=== PATIENT | female | born 1945 | race African-American/Black ===

== ENCOUNTER 2018-08-23 11:01 | Inpatient (IN) ==
--- NOTE | 2018-08-23 11:44 | Diag Imaging Result Doc PS360 ---
EXAM: CHEST-2 VIEWS HISTORY: cough TECHNIQUE: Chest two views COMPARISON: None. FINDINGS: The lungs are well expanded. The heart is not enlarged. The vessels are not distended. There are no infiltrates. No pleural effusions. There has been surgery to the lower neck. Mild scoliosis. IMPRESSION: No pneumonia. Electronically signed by Derek Ortega 08/23/2018 11:42 AM
[2018-08-23] MEDS ORDERED: NS 1,000 ML IV ONE (16:07)
[2018-08-23 16:24] LABS: ALLEN TEST YES; BE -3.3 mmoll (-3.0-3.0); BLOOD TYPE ARTERIAL; HCO3-(ACT) 22.3 mmoll (20.0-26.0); METHB 1.5 % (0.0-1.5); O2(CT) 18.6 mL/dL (15.0-23.0); O2HB 96.1 % (95.0-99.0); PCO2(98.6) 30 mmHg (35-45); PO2(98.6) 99 mmHg (60-100); SAMPLE BLOOD; SAO2 99.1 % (95.0-100.0); THB 13.7 g/dL (11.5-17.4); pH(98.6) 7.43 (7.35-7.45)
[2018-08-23 16:25] LABS: MODALITY ROOM AIR
--- NOTE | 2018-08-23 17:03 | PROVIDER DOCUMENTATION ---
This chart was entered by Kathy Morel Scribe, acting as scribe for Alex Gutierrez CRNP. HPI-General Adult - General Chief Complaint: Cough Stated Complaint: BS HIGH-CP/ACUTE DISTRESS DR ABDUL Time Seen by Provider: 08/23/18 15:57 Source: patient Allergies/Adverse Reactions: Patient Allergies Allergy/AdvReac Type Severity Reaction Status Date / Time codeine Allergy Unknown Verified 08/23/18 17:02 nifedipine [From Procardia] Allergy Unknown Verified 08/23/18 17:03 Home Medications: Home Medication List Medication Instructions Recorded Confirmed Last Taken Type Polyethylene Glycol 3350 [Miralax] 238 gm PO BID 90 Days #1 04/09/18 08/23/18 Unknown Rx Clonidine [Catapres] 0.1 mg PO BID 08/23/18 08/23/18 08/23/18 09:00 History Insulin Glargine,Hum.rec.anlog 65 unit SQ DAILY 08/23/18 08/23/18 Unknown History [Lantus Solostar] Insulin Glargine,Hum.rec.anlog 68 unit SQ HS 08/23/18 08/23/18 Unknown History [Lantus Solostar] Lisinopril 40 mg PO DAILY 08/23/18 08/23/18 08/23/18 09:00 History Sertraline HCl [Zoloft] 100 mg PO DAILY 08/23/18 08/23/18 Unknown History - History of Present Illness -Gen Adult Nature of Presenting Problems: 73 yof presents to the ed with c/o cough and sinus congestion for 3 weeks. pt also has elevated FSBG greater then 500 Location of Pain/Injury: reports: other (sinus congestion) Quality of Pain: reports: aching Severity: reports: mild Onset/Duration: reports: other (3 weeks') Timing: reports: still present Context/Activities at Onset: reports: light activity Modifying Factors: improves with: nothing Associated Symptoms: reports: cough, EENT symptoms, genitourinary problems, sinus congestion/drainage. denies: back/neck pain, fever/chills, headaches, shortness of breath, vomiting, weakness Similar Symptoms Previously?: Yes Recently seen or treated by another doctor?: No - Diabetes Related Context Context: reports: high blood sugar (greater then 500) Review of Systems - Adult - REVIEW OF SYSTEMS - ADULT Constitutional: denies: chills, fever Eyes: reports: no symptoms reported Ears, Nose, Mouth & Throat: reports: see HPI, sinus problem. denies: ear pain, throat pain Cardiovascular: denies: chest pain, palpitations Respiratory: reports: cough. denies: shortness of breath, wheezing Gastrointestinal: denies: abdominal pain, diarrhea, nausea, vomiting Genitourinary: reports: see HPI, frequency, frequent UTI's, urgency. denies: dysuria Musculoskeletal: denies: back pain, neck pain Integumentary: reports: no symptoms reported Neurological: denies: dizziness/vertigo, headache/migraines Psychiatric: reports: no symptoms reported Endocrine: reports: no symptoms reported Hematologic/Lymphatic: reports: no symptoms reported Allergic/Immunologic: reports: no symptoms reported All Other Systems: Reviewed and Negative Past History - Adult - PAST MEDICAL HISTORY-ADULT Review of Records: reports: Old Records Reviewed, Nursing Assessment Review, Medications Reviewed, Social history reviewed & non-contributory. Major Childhood Illnesses: reports: denies history Cardiovascular: reports: HTN Respiratory: reports: denies history Gastrointestinal: reports: pancreatitis Obstetrical/Gynecological: reports: denies history Genitourinary: reports: denies history Musculoskeletal: reports: denies history Neurological: reports: denies history Endocrine/Immune: reports: Diabetes Diabetes Type: Type 2 Diabetes controlled by:: Insulin Dependent Other Conditions: reports: denies history - PRIOR SURGERIES/PROCEDURES Surgical/Procedure History: reports: appendectomy, cholecystectomy, hysterectomy , orthopedic (extremity) - IMMUNIZATION STATUS Childhood Immunizations: See Nurse Assessment Flu Vaccine: See Nurse Assessment - FAMILY HISTORY Family History: reviewed, not pertinent - SOCIAL HISTORY Smoking: denies Substance Use: none/never Living Situation: family Physical Exam-General - PHYSICAL EXAM-ADULT Initial Vital Signs Reviewed: Yes - CONSTITUTIONAL General Appearance: appears well, alert - EYES Eyes: PERRL/EOMI, pink conjunctivae - HEAD, EARS, NOSE, MOUTH & THROAT HENMT: moist mucous membranes, frontal tenderness, maxillary tenderness - NECK Neck: full range of motion, supple, normal inspection - RESPIRATORY Respiratory: chest non-tender, lungs clear, normal breath sounds, other (cough) - CARDIOVASCULAR Cardiovascular: normal peripheral pulses, regular rate, rhythm - CHEST (BREASTS) Chest/Breast: deferred - GASTROINTESTINAL (ABDOMEN) Abdominal Exam: normal bowel sounds, non tender, soft - LYMPHATIC Lymphatic: no adenopathy - MUSCULOSKELETAL Back Exam: normal inspection, no CVA tenderness, no vertebral tenderness Extremity: normal range of motion, non-tender, normal inspection, no pedal edema , no calf tenderness, normal capillary refill - SKIN Integumentary: normal color, normal turgor, warm/dry - NEUROLOGIC Neurologic: grossly normal - PSYCHIATRIC Psych/Mental Status: normal mood/affect, normal thought content, normal thought process, oriented x 3 Progress - PLAN OF CARE/RESULTS Progress/Plan/Lab Results: Vital Signs - 8 hr 08/23/18 11:13 Temperature 97.5 F L Pulse Rate 89 Respiratory Rate 18 Blood Pressure 163/93 O2 Sat by Pulse Oximetry 95 Laboratory Results - last 24 hr 08/23/18 08/23/18 16:05 16:20 Specimen Type ARTERIAL Sample Site R RADIAL pH 7.43 pCO2 30 L pO2 99 HCO3 22.3 Base Excess -3.3 L Oxyhemoglobin 96.1 ABG O2 Sat (Calculated) 18.6 ABG O2 Saturation 99.1 ABG Carboxyhemoglobin 1.60 ABG Methemoglobin 1.5 Matt Test YES Total Hemoglobin 13.7 Lactate 2.90 H Blood Gas Modality ROOM AIR POC Glucose 500 H Orders Category Date Time Status Saline Loc NOW Care 08/23/18 16:05 Active CHEST-2 VIEWS [RAD] Stat Exams 08/23/18 11:16 Completed ABG [RESP] Routine Lab 08/23/18 16:20 Completed ACETONE SERUM [CHEM] Stat Lab 08/23/18 16:05 Uncollected CBC WITH ELECTRONIC DIFF [HEME] Stat Lab 08/23/18 16:05 Uncollected CK PROFILE [SP CHEM] Stat Lab 08/23/18 16:05 Uncollected COMPREHENSIVE METABOLIC PANEL [CHEM] Stat Lab 08/23/18 16:06 Uncollected URINALYSIS W/POSS RFLX CULT [URINALYSIS] Stat Lab 08/23/18 16:06 Uncollected 0.9% Sodium Chloride Inj [Ns] 1,000 ml Med 08/23/18 16:07 Active IV 999 mls/hr Laboratory Tests 08/23/18 08/23/18 08/23/18 16:05 16:20 16:50 Specimen Type ARTERIAL Sample Site R RADIAL pH 7.43 pCO2 30 L pO2 99 HCO3 22.3 Base Excess -3.3 L Oxyhemoglobin 96.1 ABG O2 Sat (Calculated) 18.6 ABG O2 Saturation 99.1 ABG Carboxyhemoglobin 1.60 ABG Methemoglobin 1.5 Matt Test YES Total Hemoglobin 13.7 Lactate 2.90 H Blood Gas Modality ROOM AIR Sodium 128 L Potassium 5.0 Chloride 86 L Carbon Dioxide 20 L Anion Gap 22 BUN 23 H Creatinine 1.3 H Estimated GFR/1.73 m2 49 BUN/Creatinine Ratio 18 POC Glucose 500 H Calculated Osmolality 301 Calcium 9.7 Total Bilirubin 0.67 AST 20 ALT 19 Alkaline Phosphatase 121 H Creatine Kinase 40 Total Protein 9.5 H Albumin 4.7 Globulin 4.8 Albumin/Globulin Ratio 1.0 Acetone Level 08/23/18 16:50 Specimen Type Sample Site pH pCO2 pO2 HCO3 Base Excess Oxyhemoglobin ABG O2 Sat (Calculated) ABG O2 Saturation ABG Carboxyhemoglobin ABG Methemoglobin Matt Test Total Hemoglobin Lactate Blood Gas Modality Sodium Potassium Chloride Carbon Dioxide Anion Gap BUN Creatinine Estimated GFR/1.73 m2 BUN/Creatinine Ratio POC Glucose Calculated Osmolality Calcium Total Bilirubin AST ALT Alkaline Phosphatase Creatine Kinase Total Protein Albumin Globulin Albumin/Globulin Ratio Acetone Level SMALL A Discussed results and plan of care with patient. Patient agrees with plan and verbalizes understanding. Result Diagrams: 08/23/18 16:50 - XRAY 1 XRAY: Bilateral XRAY Study: Chest (EXAM: CHEST-2 VIEWS HISTORY: cough TECHNIQUE: Chest two views COMPARISON: None. FINDINGS: The lungs are well expanded. The heart is not enlarged. The vessels are not distended. There are no infiltrates. No pleural effusions. There has been surgery to the lower neck. Mild scoliosis. IMPRESSION: No pneumonia. Electronically signed by Derek Ortega 08/23/2018 11: 42 AM 08/23/18 1142 Interpreting Physician: Derek Ortega MD Dictated Date/Time: 08/23/18 1141 cc: Baldemar Olguin MD; Etta Pagan MD) - CONSULTS/PCP/HOSPITALIST Notification #1 *Consult/PCP/Hospitalist*: CARLYN Wright for Dr. Rees Time Discussed: 18:14 Reason/Comments: Admit Consult Disposition: Will see in ED, Admit Departure - Departure Date of Disposition Decision: 08/23/18 Time of Disposition Decision: 17:37 DIAGNOSIS: DKA (diabetic ketoacidoses) Qualifiers: Diabetes mellitus type: type 1 Diabetes mellitus complication detail: without coma Qualified Code(s): E10.10 - Type 1 diabetes mellitus with ketoacidosis without coma Disposition: ADMITTED INPATIENT 09 Certified Medical Emergency: Emergent Condition: Stable Referrals and Follow-Ups: Etta Pagan MD [Primary Care Provider] - - Critical Care Note This patient required my direct & personal management of CC.: No Attestation - Physician/ MART Attestation Patient care was provided by Advanced Practice Provider:: Yes Advanced Practice Provider:: Alex Gutierrez Advanced Practice Provider documentation review:: The Mid-level provider documentation, treatment plan and medical decision making was reviewed by the physician who agrees with all treatment and medical decision making by the MLP. The physician spent face to face time with patient:: No Advanced Practice Provider documentation review:: Supervising physician onsite and consulted in the evaluation and care of this patient. The physician did not have a face to face encounter with the patient. This chart was documented by the indicated scribe, (Kathy Morel Scribe) and accurately reflects the services I performed and decisions made by me, Alex Gutierrez CRNP, as attested by the provider's signature.
[2018-08-23 17:29] LABS: ALBUMIN 4.7 g/dL (3.5-5.0); CALCIUM 9.7 mg/dL (8.8-10.2); CREATININE 1.3 mg/dL (0.5-0.9); TOTAL BILIRUBIN 0.67 mg/dL (0.20-1.00); TOTAL PROTEIN 9.5 g/dL (6.3-8.3)
[2018-08-23] MEDS ORDERED: HUMULIN R IV ONE (17:36)
[2018-08-23 18:24] LABS: BASO# 0.05 X1000 (0.0-0.2); BASO% 0.5 % (0.0-0.8); EOS# 0.01 X1000 (0.0-0.7); EOS% 0.1 % (0.0-10.0); HEMOGLOBIN 14.2 g/dL (12.0-16.0); IMM GRAN# 0.02 X1000 (0.0-0.04); IMM GRAN% 0.2 % (0.0-0.5); LYMPH# 1.19 X1000 (1.2-3.4); LYMPH% 12.5 % (20.5-51.1); MCH 26.6 PG (27-31); MCV 80.7 FL (81-99); MONO% 5.2 % (1.7-9.3); NEUT# 7.77 X1000 (1.4-6.5); NEUT% 81.5 % (42.2-75.2); PLT 78 X1000 (130-400); RBC 5.33 XMIL (4.2-5.4); RDW 12.8 % (11.5-14.5); WBC 9.54 X1000 (4.8-10.8)
[2018-08-23 18:33] LABS: MAGNESIUM 2.4 mg/dL (1.5-2.7); PHOSPHORUS 5.4 mg/dL (2.7-4.5)
[2018-08-23 18:47] LABS: URINE SOURCE CLEAN CATCH
[2018-08-23] MEDS ORDERED: ZOFRAN IV PRN ×2 (18:48→19:39)
[2018-08-23 18:51] LABS: BILIRUBIN URINE NEGATIVE (NEGATIVE); BLOOD URINE NEGATIVE (NEGATIVE); COLOR STRAW; GLUCOSE URINE >1000 mg/dL (NEGATIVE); KETONE URINE 10 mg/dL (NEGATIVE); LEUKOCYTES URINE NEGATIVE (NEGATIVE); NITRITE URINE NEGATIVE (NEGATIVE); PROTEIN URINE TRACE mg/dL (NEGATIVE); SP GRAVITY URINE 1.032; TURBIDITY URINE CLEAR (CLEAR); UR EPITHELIAL CELLS <10 /HPF (<10); URINE BACTERIA NEGATIVE /HPF; URINE RBC 20-40 /HPF (<10); URINE WBC <10 /HPF (<10); UROBILINOGEN URINE NORMAL (NORMAL)
[2018-08-23 19:02] LABS: UR AMPHETAMINES QUAL NONE DETECTED (NONE DETECT); UR BARBITUATES QUAL NONE DETECTED (NONE DETECT); UR BENZODIAZEPIN QUAL NONE DETECTED (NONE DETECT); UR CANNABINOIDS QUAL NONE DETECTED (NONE DETECT); UR COCAINE QUAL NONE DETECTED (NONE DETECT); UR METHADONE QUAL NONE DETECTED (NONE DETECT); UR OPIATES QUAL NONE DETECTED (NONE DETECT); UR OXYCODONE QUAL NONE DETECTED (NONE DETECT); UR PCP QUAL NONE DETECTED (NONE DETECT)
[2018-08-23 19:23] LABS: HEMOGLOBIN A1C 17.4 % (4.8-6.0)
--- NOTE | 2018-08-23 19:23 | HISTORY AND PHYSICAL ---
PRIMARY CARE PROVIDER: Dr. Etta Pagan. PRIMARY MANAGER RADIO: Dr. Meyer. CHIEF COMPLAINT: Cough, sinus congestion, shortness of breath, chest pain, fever/chills, nausea, vomiting and diarrhea. HISTORY OF PRESENT ILLNESS: Ms. Marcia Beach is a 73-year-old female with a medical history of diabetes mellitus type 2, pancreatitis back in 2017 and iron-deficiency anemia. She states that she has not been taking her blood glucose levels or taking her insulin for the last 3 months due to the inability to afford it. She states it is essentially pay for the insulin or pay for food. She states over the last 3 weeks she has had a dry cough, sinus congestion, and some shortness of breath with some intermittent chest pain that does not radiate. She has had on- and-off chills with subjective fever last night along with some nausea and vomiting that she had yesterday, and today she started having diarrhea with continued nausea. She presented to the ER with a blood glucose level of 861 and was treated with insulin and IV fluids, and she will be transferred to the ICU for treatment of hyperglycemic, hyperosmolar state. PAST MEDICAL HISTORY: 1. Hypertension. 2. Diabetes mellitus type 2. 3. Constipation. 4. Pancreatitis, last being in 2017. 5. Iron-deficiency anemia. 6. Left breast cancer back in 2011. Had 10 weeks of radiation, a year of chemo, and then finished the 5-year pill. PAST SURGICAL HISTORY: 1. Appendectomy. 2. Cholecystectomy. 3. Hysterectomy. 4. Left breast biopsy. 5. Right rotator cuff repair. SOCIAL HISTORY: Quit smoking in 1991, but prior to that smoked less than half a pack per day for 25 years. Denies alcohol or illicit drug use. She lives at home by herself. She moved back here from [place], [place] in 2016, but she is originally from here. FAMILY HISTORY: Mother had hypertension, stomach cancer and end-stage renal disease with hemodialysis. Father had coronary artery disease and myocardial infarction. She had 1 brother with myocardial infarction. She had a 2nd brother with brain aneurysm. ALLERGIES: 1. Codeine. 2. Nifedipine. HOME MEDICATIONS: (Apparently she has not been taking these over the last 3 months). 1. Catapres 0.1 mg p.o. twice daily. 2. Lantus subcutaneously 68 units nightly and 65 units daily. 3. Lisinopril 40 mg p.o. daily. 4. Zoloft 100 mg p.o. daily. 5. MiraLAX twice daily. REVIEW OF SYSTEMS: A 14-point review of systems is completed, and all were negative except for those mentioned above in the HPI. PHYSICAL EXAMINATION: VITAL SIGNS: Temperature 97.5, heart rate 89, respiratory rate 18, blood pressure 163/93, O2 saturation 95% on room air. She is 4 feet 11 inches tall, weight 119 pounds, with a BMI of 24. GENERAL: Ms. Marcia Beach is a 73-year-old female. She is in no acute distress. She is able to answer questions appropriately. HEENT: Atraumatic, normocephalic. Pupils equal, round, and reactive to light. Extraocular movements intact. Mucous membranes are dry. NECK: Trachea midline. CARDIOVASCULAR: S1 and S2, regular rate and rhythm. No rubs, gallops or murmurs. No lower extremity edema. Has +2 dorsalis and radial pulses. Negative JVD or carotid bruits. PULMONARY: Clear to auscultate. Bilateral breath sounds. No accessory muscle use or work of breathing noted. GI: Soft. Tender in all 4 quadrants. Positive bowel sounds x4. EXTREMITIES: Moves all extremities equally. Full range of motion. NEUROLOGIC: A O x4. Follows commands. Sensory is intact. SKIN: Warm, dry, intact and pale. LABORATORY DATA: White blood cells 9000, hemoglobin 14, hematocrit 43, platelet count 78. ABGs show a pH of 7.43, pCO2 of 30, pO2 of 99, bicarb of 22, base excess -3.3, saturation 96%, with a lactate of 2.9. Sodium 128, potassium 5.0, BUN 23, creatinine 1.3, glucose 861 (now down to 500). Calcium 9.6, phosphorus 5.4, magnesium 2.4, bilirubin 0.67, AST 20, ALT 19. CK 40. Albumin 4.7. Amylase 91, lipase 67, and there is small acetone. IMAGING: Chest x-ray - no pneumonia. ASSESSMENT/PLAN: 1. Hyperglycemic, hyperosmolar state with some mild acetone and lactic acidosis. Will start her on a diabetic ketoacidosis protocol. She will receive aggressive IV fluid hydration which will help with the lactic acidosis, and she will be on an insulin drip. We will follow her in the intensive care unit overnight. 2. Likely viral gastroenteritis. She started having symptoms last night. Progressed from vomiting to diarrhea. White count is normal, but we will go ahead and get a CT of the abdomen and pelvis. Antiemetics, and she may have a full liquid diabetic diet. 3. History of pancreatitis last diagnosed in 2017. Today amylase is 91 and lipase 67. 4. Dehydration with acute kidney injury. Creatinine is 1.3. She will receive aggressive IV fluid hydration. Will recheck basic metabolic profile according to the diabetic ketoacidosis protocol. 5. Hyponatremia. She is receiving normal saline, and she will have her routine [id number] basic metabolic profiles per protocol. 6. Thrombocytopenia. Platelet count is 78. It looks like back in March it was normal at 202. There are no signs of bleeding at this time. Her hemoglobin and hematocrit are stable. 7. Deep venous thrombosis prophylaxis. Will do sequential compression devices for now. Dictated by CARLYN Cline for Lamin Acharya MD cc: CARLYN Cline MD Hiteshri S. Bhavsar, MD
[2018-08-23] MEDS ORDERED: D50W SYRINGE IV PRN (19:39)
[2018-08-23] MEDS ORDERED: HUMULIN R 100 UNIT in NS 99 ML IV SCH (19:39)
[2018-08-23] MEDS ORDERED: SODIUM PHOSPHATE 30 MMOL in D5W 250 ML IV PRN (19:39)
[2018-08-23] MEDS ORDERED: POTASSIUM CHLORIDE 20% LIQUID PO PRN (19:39)
[2018-08-23] MEDS ORDERED: TYLENOL PO PRN (19:39)
[2018-08-23] MEDS: NS 1,000 ML IV SCH ×4 (19:39→22:30)
[2018-08-23] MEDS ORDERED: POTASSIUM CHLORIDE 40 MEQ/SWI 40 MEQ/100 ML IVPB IV PRN (19:39)
[2018-08-23] MEDS ORDERED: MAGNESIUM SULFATE 2 GM/S.W.I. 2 GM/50 ML IVPB IV PRN (19:39)
[2018-08-23] MEDS ORDERED: POTASSIUM CHLORIDE 20 MEQ/SWI 20 MEQ/100 ML IVPB IV PRN (19:39)
--- NOTE | 2018-08-23 19:43 | Diag Imaging Result Doc PS360 ---
EXAM: CT THORAX/ABD/PELVIS W/O CON HISTORY: sob; abd pain; diarrhea TECHNIQUE: 1. CT chest without contrast 2. CT abdomen and pelvis without contrast. Suboptimal exam without oral or intravenous contrast. COMPARISON: None. FINDINGS: Chest: No pleural effusions. No cardiomegaly. No thoracic aortic aneurysm. Moderate to prominent atherosclerosis. There calcified right hilar lymph nodes with scattered granuloma. No pneumonia. No bronchiectasis. I do not identify a lung mass. Abdomen and pelvis: The gallbladder has been removed. No focal hepatic abnormality identified on this noncontrasted exam. Spleen is not enlarged. Normal pancreas and adrenal glands. No renal stones or hydronephrosis. Prominent atherosclerosis. No aortic aneurysm. No bowel obstruction. No abscess. The appendix is not identified. The uterus has been removed. There is a Villa catheter within the urinary bladder. The bladder is not distended. Trace pelvic fluid. No pelvic mass. Prominent degenerative spine changes. IMPRESSION: Chest: There is evidence of a prior granulomatous infection Abdomen and pelvis: 1. Cholecystectomy 2. Hysterectomy 3. Prominent atherosclerosis This exam was performed using automated exposure control, adjustment of mA or kV according to patient size, and/or use of iterative reconstruction technique. Electronically signed by Derek Ortega 08/23/2018 7:41 PM
[2018-08-23] MEDS: HUMULIN R IV ONE (20:54)
[2018-08-23] MEDS: D5 NS 1,000 ML IV SCH (20:57)
[2018-08-23] MEDS: CATAPRES PO SCH (21:00)
[2018-08-23] MEDS ORDERED: AYR NASAL SPRAY NAS PRN (23:40)
[2018-08-24 00:23] LABS: CALCIUM 8.1 mg/dL (8.8-10.2); CREATININE 1.1 mg/dL (0.5-0.9); MAGNESIUM 2.1 mg/dL (1.5-2.7); PHOSPHORUS 2.2 mg/dL (2.7-4.5); POTASSIUM 3.5 mmol/L (3.5-5.1)
[2018-08-24] MEDS: HUMULIN R IV ONE (00:27)
[2018-08-24] MEDS: POTASSIUM CHLORIDE 10% LIQUID PO PRN ×3 (02:01→08:42)
[2018-08-24 04:31] LABS: BASO# 0.04 X1000 (0.0-0.2); BASO% 0.5 % (0.0-0.8); EOS% 2.5 % (0.0-10.0); HEMATOCRIT 31.6 % (37.0-47.0); HEMOGLOBIN 10.4 g/dL (12.0-16.0); LYMPH# 2.32 X1000 (1.2-3.4); LYMPH% 28.7 % (20.5-51.1); MCH 26.3 PG (27-31); MCHC 32.9 g/dL (33-37); MONO# 0.45 X1000 (0.11-0.59); MONO% 5.6 % (1.7-9.3); MPV 12.8 FL (7.4-10.4); NEUT# 5.07 X1000 (1.4-6.5); NEUT% 62.7 % (42.2-75.2); PLT 162 X1000 (130-400); RBC 3.95 XMIL (4.2-5.4); RDW 12.5 % (11.5-14.5); WBC 8.08 X1000 (4.8-10.8)
[2018-08-24] MEDS: D5 NS 1,000 ML IV SCH ×3 (05:11→10:51)
[2018-08-24 05:56] LABS: ALLEN TEST YES; BLOOD TYPE ARTERIAL; HCO3-(ACT) 21.8 mmoll (20.0-26.0); METHB 1.3 % (0.0-1.5); O2HB 96.7 % (95.0-99.0); PCO2(98.6) 36 mmHg (35-45); PO2(98.6) 104 mmHg (60-100); SAMPLE BLOOD; SAO2 99.6 % (95.0-100.0); THB 10.2 g/dL (11.5-17.4); pH(98.6) 7.37 (7.35-7.45)
[2018-08-24 05:57] LABS: AGAP 12; ALKALINE PHOSPHATASE 70 U/L (32-104); BUN 14 mg/dL (8-22); CALCIUM 8.2 mg/dL (8.8-10.2); CHLORIDE 111 mmol/L (98-107); COSMO 291; CREATININE 0.9 mg/dL (0.5-0.9); ESTIMATED GFR > 60; GLUCOSE 160 mg/dL (70-104); GOT 14 U/L (10-30); GPT 11 U/L (10-36); MAGNESIUM 1.9 mg/dL (1.5-2.7); PHOSPHORUS 2.6 mg/dL (2.7-4.5); SODIUM 144 mmol/L (136-145); TCO2 21 mmol/L (25-35); TOTAL BILIRUBIN 0.36 mg/dL (0.20-1.00); TOTAL PROTEIN 6.1 g/dL (6.3-8.3)
[2018-08-24 06:05] LABS: MODALITY ROOM AIR
[2018-08-24] MEDS: NS 1,000 ML IV SCH ×4 (07:33→20:10)
[2018-08-24 08:22] LABS: AGAP 8; BUN 13 mg/dL (8-22); CALCIUM 8.3 mg/dL (8.8-10.2); CHLORIDE 112 mmol/L (98-107); COSMO 286; CREATININE 0.9 mg/dL (0.5-0.9); ESTIMATED GFR > 60; GLUCOSE 173 mg/dL (70-104); PHOSPHORUS 1.8 mg/dL (2.7-4.5); POTASSIUM 4.2 mmol/L (3.5-5.1); SODIUM 141 mmol/L (136-145); TCO2 21 mmol/L (25-35)
[2018-08-24] MEDS: ZOLOFT PO SCH (08:43)
[2018-08-24] MEDS: PRINIVIL PO SCH (08:43)
[2018-08-24] MEDS: PRILOSEC PO SCH (08:43)
[2018-08-24] MEDS: CATAPRES PO SCH ×2 (08:43→20:09)
[2018-08-24 12:30] LABS: AGAP 9; BUN 12 mg/dL (8-22); CHLORIDE 112 mmol/L (98-107); COSMO 290; CREATININE 0.8 mg/dL (0.5-0.9); ESTIMATED GFR > 60; GLUCOSE 289 mg/dL (70-104); MAGNESIUM 1.7 mg/dL (1.5-2.7); PHOSPHORUS 1.7 mg/dL (2.7-4.5); POTASSIUM 5.1 mmol/L (3.5-5.1); SODIUM 140 mmol/L (136-145); TCO2 19 mmol/L (25-35)
--- NOTE | 2018-08-24 14:01 | PROGRESS NOTE ---
DATE: 08/24/2018 SUBJECTIVE: Patient resting comfortable in bed. OBJECTIVE: Vital signs: Vital signs are as follows: Temperature 98.6 degrees, pulse is 99, respirations 14, blood pressure is 100/51, oxygen saturation is 96%. HEENT: Atraumatic, normocephalic. Cardiovascular system: S1, S2. Respiratory system: Has evidence of good air entry bilaterally. Abdomen: Soft, nontender. No masses felt. Extremities: No evidence of edema. Central nervous system: No obvious focal deficits noted. LABS: Labs are as follows: WBC is 8.08, hematocrit is 31.6 with a platelet count of 162. ABG 7.37/36/104/99.6. Sodium is 140, potassium 5.1, chloride is 112, bicarbonate is 19. BUN is 12, creatinine 0.8. ASSESSMENT AND PLAN: 1. Diabetes mellitus type 2. We will discontinue insulin which was started for hyperglycemia. Maintain patient on sliding scale insulin. Monitor blood sugar levels. 2. Acute viral illness treated symptomatically. 3. Acute kidney injury. Resolved. 4. Hyponatremia. Resolved. 5. Thrombocytopenia. Resolved. 6. Deep vein thrombosis prophylaxis. Sequential compression devices. 7. Gastrointestinal prophylaxis. Proton pump inhibitor. 8. Disposition: Patient can be transferred to a step-down unit. cc: Lamin Acharya MD
--- NOTE | 2018-08-24 14:39 | HISTORY AND PHYSICAL ---
HISTORY OF PRESENT ILLNESS: Ms. Marcia Beach is a 73-year-old female and she presented to the hospital because of cough, sinus congestion, shortness of breath, fever, nausea, vomiting, diarrhea. Noted to have a raised blood sugar of 861. Her vital signs note a raised blood pressure. PHYSICAL EXAMINATION: Unremarkable. PLAN: The patient is started on an insulin drip for hyperglycemia. We will treat respiratory as well as GI symptoms symptomatically. Agree with assessment and plan of the POLICE INSPECTOR. cc: Lamin Acharya MD
[2018-08-24] MEDS: HUMULIN R SUBQ SCH ×2 (16:26→20:09)
[2018-08-24 17:38] LABS: AGAP 10; BUN 12 mg/dL (8-22); CHLORIDE 110 mmol/L (98-107); COSMO 286; CREATININE 0.8 mg/dL (0.5-0.9); ESTIMATED GFR > 60; GLUCOSE 314 mg/dL (70-104); MAGNESIUM 1.6 mg/dL (1.5-2.7); PHOSPHORUS 1.7 mg/dL (2.7-4.5); POTASSIUM 5.5 mmol/L (3.5-5.1); SODIUM 137 mmol/L (136-145); TCO2 17 mmol/L (25-35)
[2018-08-24] MEDS: TYLENOL PO PRN (20:08)
[2018-08-25] MEDS: NS 1,000 ML IV SCH ×3 (05:09→21:41)
[2018-08-25 05:49] LABS: AGAP 6; BUN 11 mg/dL (8-22); CHLORIDE 112 mmol/L (98-107); COSMO 278; CREATININE 0.8 mg/dL (0.5-0.9); ESTIMATED GFR > 60; GLUCOSE 150 mg/dL (70-104); POTASSIUM 4.5 mmol/L (3.5-5.1); SODIUM 138 mmol/L (136-145); TCO2 20 mmol/L (25-35)
[2018-08-25] MEDS: HUMULIN R SUBQ SCH ×4 (06:18→21:40)
[2018-08-25] MEDS: TYLENOL PO PRN ×2 (08:38→23:22)
[2018-08-25] MEDS: PRINIVIL PO SCH (08:38)
[2018-08-25] MEDS: ZOLOFT PO SCH (08:38)
[2018-08-25] MEDS: CATAPRES PO SCH ×2 (08:38→21:40)
[2018-08-25] MEDS: PRILOSEC PO SCH (08:38)
--- NOTE | 2018-08-25 19:07 | PROGRESS NOTE ---
DATE: 08/25/2018 SUBJECTIVE: Patient resting comfortable in bed. OBJECTIVE: Vital signs: Temperature 98.6 degrees, pulse 65, respiratory 16, blood pressure 146/72, oxygen saturation 100%. HEENT: Atraumatic, normocephalic. Cardiovascular: S1, S2. Respiratory: Has evidence of good air entry bilaterally. Abdomen: Soft, nontender, no masses felt. Extremities: No evidence of edema. Central nervous system: No obvious focal deficits noted. LABS: Sodium 145, potassium 112, bicarb 20, BUN is 11, creatinine 0.8, glucose is 221. ASSESSMENT AND PLAN: 1. Diabetes mellitus type 2. Continue sliding scale insulin as well as blood sugar monitoring. 2. Acute viral illness. Treat symptomatically. 3. Acute kidney injury resolved. 4. Hyponatremia resolved. 5. Thrombocytopenia resolved. 6. Deep vein thrombosis prophylaxis SCD. 7. Gastrointestinal prophylaxis PPI. 8. Disposition. Patient can be transferred to the floor and possibly discharge this weekend. cc: Lamin Acharya MD
[2018-08-26] MEDS: NS 1,000 ML IV SCH ×3 (04:56→20:33)
[2018-08-26] MEDS: HUMULIN R SUBQ SCH ×4 (06:07→20:34)
[2018-08-26] MEDS: CATAPRES PO SCH ×2 (10:18→20:34)
[2018-08-26] MEDS: PRINIVIL PO SCH (10:18)
[2018-08-26] MEDS: ZOLOFT PO SCH (10:18)
[2018-08-26] MEDS: PRILOSEC PO SCH (10:18)
[2018-08-26] MEDS: TYLENOL PO PRN (20:34)
[2018-08-27] MEDS: NS 1,000 ML IV SCH ×3 (04:21→21:04)
[2018-08-27] MEDS: HUMULIN R SUBQ SCH ×4 (06:11→21:06)
--- NOTE | 2018-08-27 08:11 | PROGRESS NOTE ---
DATE: 08/26/2018 SUBJECTIVE: The patient is a 73-year-old female who currently is in no distress. [*]. She is not eating very well. The patient is still very tired and fatigued. PHYSICAL EXAM: Vital signs: Temperature is 98.2, pulse 66, respiratory rate 22 and blood pressure is 156/63. General: The patient is awake and alert. She is not in apparent distress. She is very pleasant to talk with. HEENT: Normocephalic, atraumatic. Pupils are equal, round and reactive to light. Neck: Supple. No JVD. CV: Regular rate without murmur. Chest: Clear. [*]. Abdomen: Soft. [*]. Extremities: Moves all extremities [*]. ASSESSMENT: 1. Diabetes, type 2. 2. Febrile illness. 3. Acute kidney injury, resolved. 4. [*], resolved. 5. Thrombocytopenia, resolved. PLAN: We will slowly restart her on insulin as she starts to eat better. She is still too fatigued and weak to be discharged to home. cc: Luis Carey MD
[2018-08-27] MEDS: CATAPRES PO SCH ×2 (08:30→21:04)
[2018-08-27] MEDS: PRINIVIL PO SCH (08:30)
[2018-08-27] MEDS: PRILOSEC PO SCH (08:30)
[2018-08-27] MEDS: ZOLOFT PO SCH (08:30)
[2018-08-27 09:52] LABS: BASO# 0.02 X1000 (0.0-0.2); BASO% 0.4 % (0.0-0.8); EOS# 0.17 X1000 (0.0-0.7); EOS% 3.2 % (0.0-10.0); HEMATOCRIT 37.6 % (37.0-47.0); LYMPH# 1.15 X1000 (1.2-3.4); LYMPH% 21.4 % (20.5-51.1); MCH 26.2 PG (27-31); MCHC 31.9 g/dL (33-37); MCV 82.1 FL (81-99); MONO# 0.31 X1000 (0.11-0.59); MONO% 5.8 % (1.7-9.3); NEUT# 3.72 X1000 (1.4-6.5); NEUT% 69.2 % (42.2-75.2); PLT 119 X1000 (130-400); RBC 4.58 XMIL (4.2-5.4); WBC 5.37 X1000 (4.8-10.8)
--- NOTE | 2018-08-27 19:22 | PROGRESS NOTE ---
DATE: 08/27/2018 INTERVAL HISTORY: Patient glucose control much improved. No further nausea, vomiting or diarrhea. Reports improvement in appetite and desire to begin ambulation. No acute events overnight. No new complaints. REVIEW OF SYSTEMS: Twelve point review of systems negative except as per interval history. LABS: CBC unremarkable. Glucose 146 to 284. PHYSICAL EXAMINATION: General: No acute distress. Vitals as above. HEENT: Normocephalic, atraumatic. Moist mucous membranes. No cervical adenopathy. Cardiovascular: Regular rate and rhythm. No murmurs, rubs or gallops. Pulmonary: Clear to auscultation bilaterally. Abdomen: Soft, nontender, nondistended. Bowel sounds positive. Extremities: Peripheral pulses intact. No clubbing, cyanosis or edema. Neurologic: Cranial nerves 2-12 grossly intact. Mild global weakness, but no focal deficits identified. Psychiatric: Normal mood and affect. Awake, alert, oriented x 3. Skin: No new rashes or lesions identified. ASSESSMENT AND PLAN: 1. Diabetes mellitus with HHS. Glucose control markedly improved on sliding scale insulin. Has been largely n.p.o. to this point, but no further GI symptoms and appetite improved. Will advance patient's diet. Monitor blood sugar as she begins to eat again. The patient states that she was noncompliant with her Lantus at home secondary to cost. Will transition to 70/30 at discharge to attempt to assist this. 2. Viral gastroenteritis, now resolved. Advance diet as above. 3. Acute kidney injury. Resolved with intravenous fluids. Continue to monitor. 4. Hyponatremia, resolved on last check. 5. Hypertension, reasonable control on home clonidine, lisinopril. Continue these. 6. DVT prophylaxis. SCDs. 7. Disposition. Likely home tomorrow if patient tolerates diet and is able to ambulate well. [facility]
[2018-08-27] MEDS: TYLENOL PO PRN (21:04)
[2018-08-28] MEDS: NS 1,000 ML IV SCH (04:24)
[2018-08-28] MEDS: HUMULIN R SUBQ SCH (06:41)
[2018-08-28] MEDS: PRILOSEC PO SCH (08:56)
[2018-08-28] MEDS: ZOLOFT PO SCH (08:56)
[2018-08-28] MEDS: CATAPRES PO SCH (08:56)
[2018-08-28] MEDS: PRINIVIL PO SCH (08:56)
[2018-08-28 11:39] VITALS: BP 161/60
--- NOTE | 2018-08-29 07:03 | DISCHARGE SUMMARY ---
ADMISSION DATE: 08/23/2018 DISCHARGE DATE: 08/28/2018 PRINCIPAL DIAGNOSES: Hyperglycemia, hyperosmolar, nonketotic state. SECONDARY DIAGNOSES: 1. Probable viral gastroenteritis. 2. History of pancreatitis. 3. Acute kidney injury. 4. Hyponatremia. 5. Thrombocytopenia. 6. Hypertension. 7. Iron deficiency anemia. 8. History of breast cancer. DISCHARGE MEDICATIONS: Include the followin. MiraLAX to be taken as directed. 2. Klonopin 0.1 g p.o. twice a day. 3. Lantus 80, 68 units subcutaneous twice a day. 4. Lisinopril 40 mg p.o. daily. 5. Sertraline 100 mg p.o. once a day. CONSULTATIONS DONE DURING THIS HOSPITAL STAY: None. PROCEDURES DONE DURING THIS HOSPITAL STAY: CT scan of the chest abdomen and pelvis, 08/23/2018. HOSPITAL COURSE: Ms. Marcia Beach is a 73-year-old female who has been noncompliant with her diabetic regimen because of cost. When she presented to the hospital, her blood sugar was as high as 861. She was diagnosed as having hyperglycemia with hyperosmolar nonketotic state. The patient was started on insulin infusion as well as intravenous hydration. She was managed in the intensive care unit. The patient was also thought to have an acute viral illness as well, with symptomatic treatment recommended. The patient did fairly well. Other conditions noted during the course of the hospital stay were acute kidney injury as well as hyperkalemia all of which were managed conservatively. DISCHARGE PHYSICAL EXAMINATION: Vital Signs: During my evaluation today, her vital signs are as follows: Temperature 98 degrees, pulse is 67, respiratory rate 13, blood pressure 161/60. Oxygen saturation 100%. HEENT: Atraumatic, normocephalic. Cardiovascular: S1, S2. Respiratory system: Evidence of good air entry bilaterally. Abdomen: Soft, nontender. No masses felt. Extremities: No evidence of edema. Central nervous system: No obvious focal deficit noted. LABORATORY DATA: None today. PLAN: The patient can be discharged home. She will need to be compliant with her diabetic treatment regimen. She will need to follow up with her primary care physician. cc: Lamin Acharya MD
== END 2018-08-28 12:46 | disposition home health service (06) | DRG 638 ==
LOC: ED 11:01 → EDIPHOLD 11:01 → SUATTDRO 18:10 → OBSVTOIN 18:10 → 3S 22:25 → 3N 08-25 22:54
PROVIDERS: ATTEND Internal Medicine
CPT/HCPCS: 71020; 71046; 71250; 74176; 80048; 80053; 80061; 80101; 80301; 80307; 80324; 80345; 80346; 80353; 80358; 80361; 80365; 81001; 82009; 82150; 82550; 82805; 82948; 83036; 83605; 83690; 83721; 83735; 83992; 84100; 84484; 85025; 87040; 99285; A9270; G0431; G0434; G0479; G0480; J7030; J7042; XXXXX